=== PATIENT | male | born 1970 | race Caucasian/White ===

== ENCOUNTER → 2018-11-25 | Day surgery (SDC) | payer OTHER | END | disposition home or self-care (01) | LOC: HOP 07:04 | PROVIDERS: ATTEND Internal Medicine Gastroenterology | DX: Z53.9 Procedure and treatment not carried out, unspecified reason (principal) ==

== ENCOUNTER 2019-09-05 20:37 | Emergency (ER) | payer OTHER ==
[2019-09-05] MEDS ORDERED: IPRATROPIUM/ALBUTEROL (0.5MG/3MG) NEB INH ONE (20:46)
[2019-09-05] MEDS ORDERED: METHYLPREDNISOLONE PF 125MG/VIAL IVP ONE (20:47)
--- NOTE | 2019-09-05 20:54 | Emergency Department Record ---
History of Present Illness - General Chief complaint: Burn/Smoke Inhalation Stated complaint: CHEMICAL INHALATION/NEENA Time Seen by Provider: 09/05/19 20:46 Source: Patient Mode of Arrival: Ambulatory Limitations: No limitations - History of Present Illness Initial comments: The patient is here due to a chemical exposure about 45 minutes ago. 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 He then added water and immediately was exposed to a noxious gas smell from the bucket. He then felt SOB and has been coughing since. There has been no CP, back pain, fever or sputum production. MD Complaint: Chemical exposure Onset/Timin -: Minutes(s) Type of Exposure: Chemical Smoke Inhalation: None Severity scale (1-10): 8 Associated Symptoms: Denies other symptoms - Related Data Previous Rx's Medication Instructions Recorded Albuterol Sulfate [Proair Hfa] 2 puff IH QID PRN #1 inhaler 09/05/19 Prednisone [Prednisone 20Mg] 40 mg PO DAILY #8 tab 09/05/19 Allergies Allergy/AdvReac Type Severity Reaction Status Date / Time terfenadine [From Seldane] Allergy Mild HIVES Verified 09/05/19 20:49 bupropion HCl Allergy HIVES Verified 08/24/16 11:46 [From Wellbutrin] Travel Screening - Travel/Exposure Within Last 30 Days Have you traveled within the last 30 days?: No - Travel/Exposure Within Last Year Have you traveled outside the [place] in the last year?: Yes Location Detail:: [place] - Additonal Travel Details Have you been exposed to anyone with a communicable illness?: No - Travel Symptoms Symptom Screening: None Review of Systems Constitutional: Denies: Chills, Fever Eyes: Denies: Eye discharge ENT: Denies: Congestion Respiratory: Reports: Cough, Dyspnea. Denies: Hemoptysis, Stridor, Wheezes Cardiovascular: Denies: Arrhythmia, Chest pain Endocrine: Denies: Fatigue Gastrointestinal: Denies: Nausea Genitourinary: Denies: Dysuria Musculoskeletal: Denies: Arthralgia Skin: Denies: Bruising Past Medical History - SOCIAL HISTORY Smoking Status: Never smoker Alcohol Use: Occasional Drug Use: None - RESPIRATORY Hx Respiratory Disorders: No Hx Asthma: No Hx Bronchitis: No Hx COPD: No Hx Dyspnea: No Hx Pneumonia: No Hx Pulmonary Embolism: No Hx Sleep Apnea: No Hx Tuberculosis: No Hx of CPAP: No - CARDIOVASCULAR Hx Cardio Disorders: No Hx Abnormal EKG: No Hx Cardiac Cath: No Hx Chest Pain: No Hx CHF: No Hx Edema: No Hx Heart Attack: No Hx Hypertension: No Hx Hypotension: No Hx Irregular Heartbeat: No Hx Palpitations: No Hx Pacemaker/Defib: No Hx Vascular Disease: No Hx Coronary Artery Disease: No Hx Coronary Artery Bypass Graft: No Hx Coronary Stent: No - NEURO Hx Neuro Disorders: No Hx CVA: No Hx Dizziness: No Hx Headaches: No Hx of Migraines: No Hx Neuropathy: No Hx Parkinson's Disease: No Hx Seizures: No Hx Speech Problem: No Hx TIA: No Hx Weakness: No Hx Paralysis: No - GI Hx GI Disorders: Yes Hx Abdominal Pain: No Hx Reflux: Yes (feels like a "lump or heartburn") Hx Hepatitis/Jaundice: No Hx Irritable Bowel: No Hx Liver Disease: No Hx Nausea/Vomiting: No Hx Obstructive Bowel: No Hx Pancreatitis: No Hx Cirrhosis: No Hx of Polyps: Yes (pre cancerous) - Hx Genitourinary Disorders: No Hx Bladder Problem: No Hx Kidney Stones: No Hx Prostate Problems: No Hx UTI: No - ENDOCRINE Hx Endocrine Disorders: No Hx Diabetes: No Hx Thyroid Disease: No - MUSCULOSKELETAL Hx Musculoskeletal Disorders: Yes Hx Arthritis: Yes Comment:: scoriatic - PSYCH Hx Psych Problems: No Hx Anxiety: No Hx Depression: No - HEMATOLOGY/ONCOLOGY Hx Hematology/Oncology Disorders: No Hx Anemia: No Hx Blood Disorders: No Hx Bruising: No Hx Cancer: No Hx Chemotherapy: No Hx Radiation Therapy: No Hx Clotting Problems: No Hx Unexplained Bleeding: No Hx Blood Transfusions: No Hx Blood Transfusion Reaction: No Family Medical History Any Significant Family History?: No Physical Exam - General General Appearance: Alert, Oriented x3, Cooperative, No acute distress (The patient is speaking in full sentences without difficulty.) - Head Head exam: Atraumatic, Normocephalic - Eye Eye exam: Normal appearance, PERRL - ENT Throat exam: Normal inspection. negative: Tonsillar erythema, Tonsillar exudate - Neck Neck exam: Normal inspection, Full ROM. negative: Tenderness - Respiratory Respiratory exam: Normal lung sounds bilaterally. negative: Rales, Respiratory distress, Rhonchi, Stridor, Wheezes - Cardiovascular Cardiovascular Exam: Regular rate, Normal rhythm, Normal heart sounds - GI/Abdominal GI/Abdominal exam: Soft, Normal bowel sounds. negative: Tenderness - Extremities Extremities exam: Normal inspection, Full ROM, Normal capillary refill. negative: Tenderness - Back Back exam: Reports: Normal inspection - Neurological Neurological exam: Alert, Normal gait, Oriented X3. negative: Abnormal gait, Altered, Motor sensory deficit - Psychiatric Psychiatric exam: negative: Anxious Course Vital Signs 09/05/19 20:40 Temperature 98.5 F Pulse Rate [ 87 Left] Respiratory 20 Rate Blood Pressure 137/86 [Left Arm] Pulse Ox 92 L - Reevaluation(s) Reevaluation #1: The patient is doing and feeling better. He is coughing less and on exam has clear lungs. The CXR is normal and the patient is speaking in full sentences with no difficulty. His RA biox is running from 91-93% at this time and does go up to 96% with deep breathing. 09/05/19 21:31 Reevaluation #2: The patient is doing much better at this time. His coughing is much less and he denies any CP or SOB. 09/05/19 21:56 Reevaluation #3: The patient is doing a lot better at this time. He feels 100% back to normal and denies any SOB or NEENA and the coughing has resolved. On exam his lungs are clear and the patient is up walking with no SOB. After walking is RA biox was 97%. He understands the need to take the medicines as directed and to return for any worsening symptoms. 09/05/19 22:51 Medical Decision Making - Data Complexity MDM Data: Labs Ordered and/or Reviewed, X-Ray Ordered and/or Reviewed - Lab Data Result diagrams: 09/05/19 20:47 09/05/19 20:47 - Radiology Data Radiology results: Report reviewed (CXR: Neg) Disposition Disposition: Discharge Clinical Impression: Chlorine gas exposure Disposition: Home, Self-Care Condition: (2) Stable Instructions: Smoke Inhalation (ED) Additional Instructions: Please use the Inhaller and Prednisone as directed. Please return to the ER for any return of the coughing, ANY trouble breathing or shortness of breath. Prescriptions: Prednisone [Prednisone 20Mg] 40 mg PO DAILY #8 tab Albuterol Sulfate [Proair Hfa] 2 puff IH QID PRN #1 inhaler PRN Reason: Cough And Difficulty Breathing Forms: Patient Portal Access Time of Disposition: 22:51 Quality - Quality Measures Quality Measures: N/A - Blood Pressure Screening View Details: Yes Does Patient Have Any of the Following: No Blood Pressure Classification: Pre-Hypertensive BP Reading Systolic Measurement: 127 Diastolic Measurement: 76 Screening for High Blood Pressure: < Pre-Hypertensive BP, F/U Documented > [G89 50] Pre-Hypertensive Follow-up Interventions: Referral to alternative/primary care provider.
[2019-09-05 20:55] LABS: ABSOLUTE NEUTROPHIL COUNT 2.77; BASO % 0.1 % (0-6); EOS % 3.4 % (0-6); GRAN % 39.4 % (47-80); HEMATOCRIT 46.6 % (42.0-52.0); HEMOGLOBIN 15.4 gm/dl (14.0-18.0); LYMPH % 46.7 % (16-45); MEAN CELL VOLUME 90.3 fl (81-97); MEAN CORPUSCULAR HEMOGLOBIN 29.8 pg (27-33); MEAN PLATELET VOLUME 9.1 fl (7.4-10.4); MONO % 10.4 % (0-9); PLATELET COUNT 322 K/uL (130-400); RED BLOOD COUNT 5.16 M/uL (4.40-5.70); RED CELL DISTRIBUTION WIDTH 13.5 % (11.5-14.5)
[2019-09-05] MEDS ORDERED: ALBUTEROL SULFATE (0.083%) 2.5 MG/3 ML NEB INH ONE ×2 (21:02→21:25)
[2019-09-05 21:09] LABS: BLOOD UREA NITROGEN 11 mg/dL (6-20); CREATININE 0.8 mg/dL (0.7-1.2); EST GLOMERULAR FILTRATION RATE > 60 mL/min
[2019-09-05 21:10] LABS: TOTAL PROTEIN 7.6 g/dL (6.6-8.7)
[2019-09-05 21:12] LABS: GLUCOSE,RANDOM 92 mg/dL (74-109)
[2019-09-05 21:15] LABS: ALB/GLOB RATIO 1.8 (1.1-1.8); ALBUMIN 4.9 g/dL (4.0-5.0); ALKALINE PHOSPHATASE 46 U/L (40-129); ALT/SGPT 30 U/L (<41); AST/SGOT 31 U/L (10.0-50.0)
--- NOTE | 2019-09-05 21:18 | RADIOLOGY REPORT ---
EXAMINATION: Frontal and Lateral Chest EXAM DATE: 09/05/2019 9:12 PM INDICATION: NEENA FINDINGS: Comparison with 08/24/2016. Frontal and lateral views show clear lungs, normal heart size, and normal hilar and mediastinal structures. IMPRESSION: Normal chest. Dictated by: Ray Lebron MD on 09/05/2019 9:15 PM. .
== END 2019-09-05 23:03 | disposition home or self-care (01) ==
LOC: ER 20:37
DX: T59.4X4A Toxic effect of chlorine gas, undetermined, initial encounter (principal); R06.02 Shortness of breath; R05 Cough; Y92.29 Other specified public building as the place of occurrence of the external cause
CPT/HCPCS: 71046; 80053; 85025; 94640; 96374; 99284; J2930; J7613